=== PATIENT | female | born 1985 | race African-American/Black ===

== ENCOUNTER 2017-01-09 15:12 | Emergency (ER) | payer BC, OTHER ==
--- NOTE | ~2017-01-09 | CR20 ---
[facility] A Service of [facility] & [facility] RADIOLOGY TEXT RESULTS PATIENT: ELEANOR GARVIN LOCATION: CFTX : 85 UNIT #: [id number] AGE: [address]: Yumiko Ramos APRN SEX: F ORDER DR: [id number] [facility] [address] [place], [place] [address] [id number] E MR#: [id number] Acc #: [id number] NAME: ELEANOR GARVIN : 1985 SEX: F STUDY DATE/TIME: 01/09/2017 17:54 UNIT: [facility] ROOM: STUDY DESCRIPTION: CR Ankle Min 3 Views Lt Attending Physician: Yumiko Ramos A.P.R.N. Referring Physician: Giovanni Chavez M.D. Ordering Physician: Ed Taye Maciel M.D. Primary Care Physician: Nino Cruz M.D. MEDICAL IMAGING REPORT This report is preliminary unless electronic signature is present Left ankle, 3 views. HISTORY Ankle pain after twisting injury and fall today. FINDINGS 3 views of left ankle demonstrate satisfactory bone alignment. No fracture, joint space narrowing or dislocation. Normal mineralization. IMPRESSION Negative. Dictated by... Rudy England M.D. THIS IS AN ELECTRONICALLY VERIFIED REPORT Rudy England M.D. at 01/09/2017 10:50 PM KEVIN/amita TD: 01/09/2017 19:19 JOB #: [id number] MEDICAL IMAGING REPORT Page 1 of 1 COPY
[~2017-01-09 15:12] MED LIST: AMOXICILLIN PO; BACTRIM DS TABL1 TA1 PO; CLEOCIN HCL300 M1 PO; DICLOFENAC PO; E-MYCIN250 MG PO; FLONASE 0.05% N16 G1; IBUPROFEN PO; KETOPROFEN PO; NAPROXEN PO; NO MEDICATIONS; ORUDIS75 M1 DOB; PRAMOSONE 2.528.4 G1 TOP; PREDNISONE PO; PRENATAL1 TA1 PO; PRILOSEC PO; PROTEXIN1 KIT MM; VICODIN 5/500 T1 TAB PO; VOLTAREN75 MG PO
== END 2017-01-09 18:39 | disposition home or self-care (01) ==
LOC: CFTX 15:12 → CED 15:12 → CFTX 17:44
DX: M25.572 Pain in left ankle and joints of left foot (principal); Z79.899 Other long term (current) drug therapy; Z88.0 Allergy status to penicillin; Z88.1 Allergy status to other antibiotic agents; Z91.040 Latex allergy status
CPT/HCPCS: 29515; 73610; 99283